=== PATIENT | male | born 1970 | race Caucasian/White ===

== ENCOUNTER 2019-06-16 13:05 | Emergency (ER) | payer BC ==
[~2019-06-16] VITALS: Ht 180.3 cm; Wt 100.7 kg
[2019-06-16] MEDS ORDERED: IBUPROFEN 600600 M1 PO (14:13)
[2019-06-16] MEDS ORDERED: ULTRAM50 MG PO (14:13)
[2019-06-16 14:47] VITALS: BP 158/108
== END 2019-06-16 14:49 | disposition home or self-care (01) ==
LOC: M.ERS 13:05
DX: S93.491A Sprain of other ligament of right ankle, initial encounter (principal); X58.XXXA Exposure to other specified factors, initial encounter; Y93.39 Activity, other involving climbing, rappelling and jumping off; Y92.89 Other specified places as the place of occurrence of the external cause; Y99.8 Other external cause status